=== PATIENT | female | born 1965 | race American Indian/Alaskan Native ===

== ENCOUNTER 2019-03-03 10:47 | Outpatient (CLI) | payer BC ==
--- NOTE | 2019-03-03 13:28 | Mammography Report ---
BILATERAL DIGITAL SCREENING MAMMOGRAM with CAD: 03/03/19 10:47:00 CLINICAL: Routine screening. COMPARISON:None. FINDINGS: The breasts are almost entirely fatty. No mass, architectural distortion or suspicious calcifications. IMPRESSION: No mammographic evidence of malignancy. BI-RADS CATEGORY: 1 - - Negative RECOMMENDATION: Routine mammographic screening in one year. COMMENT: Patient follow-up letters are generated by our [employer] application.
== END 2019-03-03 10:48 | disposition home or self-care (01) ==
LOC: MAMMO 10:47
PROVIDERS: ATTEND Internal Medicine
DX: Z12.31 Encounter for screening mammogram for malignant neoplasm of breast (principal); I10 Essential (primary) hypertension; Z90.710 Acquired absence of both cervix and uterus
CPT/HCPCS: 77067

== ENCOUNTER 2019-05-13 17:54 | Emergency (ER) | payer BC ==
--- NOTE | 2019-05-13 18:09 | Emergency Department Report ---
Blank Doc - Documentation Documentation: This is a 54-year-old female that presents with left sided chest pain with rad iation to left arm. Stated feels like a heaviness in her chest with SOB. This initial assessment/diagnostic orders/clinical plan/treatment(s) is/are subject to change based on patient's health status, clinical progression and re- assessment by fellow clinical providers in the ED. Further treatment and workup at subsequent clinical providers discretion. Patient/guardians urged not to elope from the ED as their condition may be serious if not clinically assessed and managed. Initial orders include: 1- Patient sent to MAIN ED for further evaluation and treatment 2- EKG 3- CXR 4- labs
[2019-05-13 19:04] LABS: Basophils # (Auto) 0.1 K/mm3 (0.0-0.1); Eosinophils # (Auto) 0.2 K/mm3 (0.0-0.4); Eosinophils % (Auto) 1.8 % (0.0-4.3); Hematocrit 40.9 % (30.3-42.9); Hemoglobin 13.4 gm/dl (10.1-14.3); Lymphocytes # (Auto) 2.9 K/mm3 (1.2-5.4); Lymphocytes % (Auto) 30.4 % (13.4-35.0); Mean Corpuscular HGB Conc 33 % (30-34); Mean Corpuscular Volume 82 fl (79-97); Monocytes # (Auto) 0.6 K/mm3 (0.0-0.8); Monocytes % (Auto) 6.7 % (0.0-7.3); Platelet Count 224 K/mm3 (140-440); Red Blood Count 4.97 M/mm3 (3.65-5.03); Red Cell Distribution Width 15.1 % (13.2-15.2)
--- NOTE | 2019-05-13 19:05 | XRay Report ---
CHEST 2 VIEWS INDICATION / CLINICAL INFORMATION: Chest Pain. COMPARISON: 04/04/2018 FINDINGS: SUPPORT DEVICES: None. HEART / MEDIASTINUM: No significant abnormality. LUNGS / PLEURA: No significant pulmonary or pleural abnormality. No pneumothorax. ADDITIONAL FINDINGS: No significant additional findings. IMPRESSION: 1. No acute findings. Signer Name: Jm Urbina MD Signed: 05/13/2019 7:01 PM Workstation Name: [id number]
[2019-05-13 19:13] LABS: INR 0.98 (0.87-1.13)
[2019-05-13 19:14] LABS: Partial Thromboplastin Time 24.2 Sec. (24.2-36.6)
[2019-05-13 19:27] LABS: BUN/Creatinine Ratio 14; Blood Urea Nitrogen 14 mg/dL (7-17); Hemolysis Index 9
--- NOTE | 2019-05-13 20:21 | Emergency Department Report ---
ED General Adult HPI - General Chief complaint: Chest Pain Stated complaint: CHEST PAIN/SOB/HEADACHE Time Seen by Provider: 05/13/19 20:08 Source: patient Mode of arrival: Ambulatory Limitations: No Limitations - History of Present Illness Initial comments: Patient is a 54-year-old female that presents emergency room with complaints of cough, chest congestion, chest pain, shortness of breath and headache. Patient states her symptoms started yesterday. Patient's symptoms worsening. Patient states she has tried multiple [id number] cough agents but nothing is working. Patient has not seen another physician or taking antibiotics for this problem. Patient states her chest pain is a 3 out of 10 and is in her bilateral chest. Patient states her chest pain is worse with palpation and better with rest. Patient states he is no change in her chest pain with exertion. Patient states of shortness of breath is better with rest and worse with exertion. -: Sudden Location: chest Quality: aching Consistency: constant Improves with: rest Worsens with: other Associated Symptoms: chest pain, cough, headaches, malaise, shortness of breath. denies: confusion, diaphoresis, fever/chills, loss of appetite, nausea/vomiting, rash, seizure, syncope, weakness Treatments Prior to Arrival: other - Related Data Home Medications Medication Instructions Recorded Confirmed Last Taken Abacavir/Dolutegravir/Lamivudi 600 mg PO DAILY 04/05/18 04/05/18 1 Day Ago [Triumeq 600-50-300 mg Tablet] ~04/04/18 600 Hydrochlorothiazide 25 mg PO DAILY 04/05/18 04/05/18 3 Days Ago ~04/02/18 25 Previous Rx's Medication Instructions Recorded Last Taken Type Nystatin Cream [Mycostatin Cream] 1 applic TP BID #30 gm 03/15/14 Unknown Rx Sulfamethoxazole/Trimethoprim 1 each PO Q12H #20 tablet 03/15/14 2 Days Ago Rx [Bactrim DS TAB] ~04/03/18 600 Acetaminophen [Acetaminophen TAB] 650 mg PO Q4H PRN #15 tablet 04/07/18 Unknown Rx Aspirin [Aspirin BABY CHEW TAB] 81 mg PO QDAY #30 tab.chew 04/07/18 Unknown Rx HYDROcodone/APAP 10-325 [[place] 1 each PO Q6HR PRN #16 tablet 04/07/18 Unknown Rx 10-325 mg TAB] Insulin NPH, Human [NovoLIN N] 15 unit SUB-Q BIDDIAB #100 units 04/07/18 Unknown Rx Insulin Regular, Human [HumuLIN R] 1 dose SUB-Q ACHS PRN #100 units 04/07/18 Unknown Rx levoFLOXacin [Levaquin TAB] 750 mg PO DAILY #7 tablet 04/07/18 Unknown Rx Doxycycline Hyclate [Doxycycline 100 mg PO Q12HR 10 Days #20 tab 05/13/19 Unknown Rx Hyclate TAB] methylPREDNISolone [Medrol 4MG 4 mg PO DAILY 6 Days #1 tab.ds.pk 05/13/19 Unknown Rx DOSEPAK (21 tabs)] Allergies Allergy/AdvReac Type Severity Reaction Status Date / Time shellfish derived Allergy Vomiting Verified 03/14/14 23:10 ED Review of Systems ROS: Stated complaint: CHEST PAIN/SOB/HEADACHE Other details as noted in HPI Constitutional: denies: chills, fever Eyes: denies: eye pain, eye discharge, vision change ENT: denies: ear pain, throat pain Respiratory: cough, shortness of breath. denies: wheezing Cardiovascular: chest pain. denies: palpitations Endocrine: no symptoms reported Gastrointestinal: denies: abdominal pain, nausea, diarrhea Genitourinary: denies: urgency, dysuria, discharge Musculoskeletal: denies: back pain, joint swelling, arthralgia Skin: denies: rash, lesions Neurological: headache. denies: weakness, paresthesias Psychiatric: denies: anxiety, depression Hematological/Lymphatic: denies: easy bleeding, easy bruising ED Past Medical Hx - Past Medical History Previous Medical History?: Yes Hx Hypertension: Yes (not on meds since lost weight) Hx Diabetes: Yes Hx HIV: Yes - Surgical History Past Surgical History?: Yes Hx Appendectomy: Yes Additional Surgical History: hysterectomy, 1 , bilateral sweat gland removal (under arms) - Family History Family history: no significant - Social History Smoking Status: Never Smoker Substance Use Type: None - Medications Home Medications: Home Medications Medication Instructions Recorded Confirmed Last Taken Type Nystatin Cream [Mycostatin Cream] 1 applic TP BID #30 gm 03/15/14 04/05/18 Unknown Rx Sulfamethoxazole/Trimethoprim 1 each PO Q12H #20 tablet 03/15/14 04/05/18 2 Days Ago Rx [Bactrim DS TAB] ~04/03/18 600 Abacavir/Dolutegravir/Lamivudi 600 mg PO DAILY 04/05/18 04/05/18 1 Day Ago History [Triumeq 600-50-300 mg Tablet] ~04/04/18 600 Hydrochlorothiazide 25 mg PO DAILY 04/05/18 04/05/18 3 Days Ago History ~04/02/18 25 Acetaminophen [Acetaminophen TAB] 650 mg PO Q4H PRN #15 tablet 04/07/18 Unknown Rx Aspirin [Aspirin BABY CHEW TAB] 81 mg PO QDAY #30 tab.chew 04/07/18 Unknown Rx HYDROcodone/APAP 10-325 [[place] 1 each PO Q6HR PRN #16 tablet 04/07/18 Unknown Rx 10-325 mg TAB] Insulin NPH, Human [NovoLIN N] 15 unit SUB-Q BIDDIAB #100 units 04/07/18 Unknown Rx Insulin Regular, Human [HumuLIN R] 1 dose SUB-Q ACHS PRN #100 units 04/07/18 Unknown Rx levoFLOXacin [Levaquin TAB] 750 mg PO DAILY #7 tablet 04/07/18 Unknown Rx Doxycycline Hyclate [Doxycycline 100 mg PO Q12HR 10 Days #20 tab 05/13/19 Unknown Rx Hyclate TAB] methylPREDNISolone [Medrol 4MG 4 mg PO DAILY 6 Days #1 tab.ds.pk 05/13/19 Unknown Rx DOSEPAK (21 tabs)] ED Physical Exam - General Limitations: No Limitations General appearance: alert, in no apparent distress - Head Head exam: Present: atraumatic, normocephalic - Eye Eye exam: Present: normal appearance, PERRL Pupils: Present: normal accommodation - ENT ENT exam: Present: mucous membranes dry, other (enlarged nasal turbinates and tenderness of the maxillary sinus) - Neck Neck exam: Present: normal inspection - Respiratory Respiratory exam: Present: normal lung sounds bilaterally, chest wall tenderness. Absent: respiratory distress, wheezes, rales, accessory muscle use, decreased breath sounds - Cardiovascular Cardiovascular Exam: Present: regular rate, normal rhythm. Absent: systolic murmur, diastolic murmur, rubs, gallop - GI/Abdominal GI/Abdominal exam: Present: soft, normal bowel sounds. Absent: distended, tenderness, guarding - Rectal Rectal exam: Present: deferred - Extremities Exam Extremities exam: Present: normal inspection - Back Exam Back exam: Present: normal inspection - Neurological Exam Neurological exam: Present: alert, oriented X3 - Psychiatric Psychiatric exam: Present: normal affect, normal mood - Skin Skin exam: Present: warm, dry, intact, normal color. Absent: rash ED Course Vital Signs 05/13/19 05/13/19 05/13/19 18:08 20:50 20:54 Temperature 98.6 F Pulse Rate 125 H Respiratory 18 18 Rate Blood Pressure Blood Pressure 153/93 [Left] O2 Sat by Pulse 99 98 97 Oximetry 05/13/19 05/13/19 05/13/19 21:00 21:16 21:30 Temperature Pulse Rate Respiratory Rate Blood Pressure 136/87 129/79 139/87 Blood Pressure [Left] O2 Sat by Pulse 96 97 95 Oximetry 05/13/19 05/13/19 05/13/19 21:46 22:00 22:15 Temperature Pulse Rate Respiratory Rate Blood Pressure 160/80 137/83 135/83 Blood Pressure [Left] O2 Sat by Pulse 96 95 96 Oximetry 05/13/19 05/13/19 05/13/19 22:30 22:34 23:24 Temperature Pulse Rate 102 H 103 H Respiratory 18 Rate Blood Pressure 127/79 Blood Pressure 131/80 [Left] O2 Sat by Pulse 95 100 Oximetry - Reevaluation(s) Reevaluation #1: She received fluids and antibiotics and steroids. Patient states her pain is better. Patient states her headache and chest pain improved. Patient's heart rate improved. Patient's initial heart rate 125 and is now 100. I discussed all results with patient. Patient is stable for discharge. Patient will be discharged home. Patient agrees with plan of care. Patient given discharge instructions. Patient voiced understanding discharge instructions 05/13/19 22:35 ED Medical Decision Making - Lab Data Result diagrams: 05/13/19 18:54 05/13/19 18:54 - EKG Data -: EKG Interpreted by Me EKG shows normal: sinus rhythm, axis, intervals, QRS complexes, ST-T waves Rate: tachycardia - Radiology Data Radiology results: report reviewed, image reviewed interpreted by me: Acute findings on chest x-ray. - Medical Decision Making pt is a 54-year-old female that presents emergency room for cough, chest pain, shortness of breath, headache. Patient's chest pain is reproducible on palpation. Patient's chest pain appears to be musculoskeletal and secondary to cough. Shortness of breath is secondary to bronchitis. Patient's headache appears to be secondary to sinusitis. Chest x-ray negative. Patient's labs unremarkable x hypokalemia.. Patient initially tachycardic and improved with fluids and treatment. patient responded well to treatment in the ER. Patient was given fluids, antibiotics and Medrol in the ER and improved. Patient stable for discharge. Patient discharged home. - Differential Diagnosis sinusitis. URI. Cough. Chest pain. Shortness of breath. Bronchitis Critical care attestation.: If time is entered above; I have spent that time in minutes in the direct care of this critically ill patient, excluding procedure time. ED Disposition Clinical Impression: Bronchitis, SOB (shortness of breath), Cough, Chest wall pain, Dehydration, Hypokalemia Sinusitis Qualifiers: Sinusitis location: maxillary Chronicity: acute Recurrence: recurrent Qualified Code(s): J01.01 - Acute recurrent maxillary sinusitis Chest pain Qualifiers: Chest pain type: unspecified Qualified Code(s): R07.9 - Chest pain, unspecified Disposition: - TO HOME OR SELFCARE Is pt being admited?: No Does the pt Need Aspirin: No Condition: Stable Instructions: Sinusitis (ED), Costochondritis (ED), Acute Bronchitis (ED) Additional Instructions: Patient to follow up with primary care in 2-3 days. Patient to return to ER if condition worsens. Patient to take meds as directed. Patient increase water. Patient's take Tylenol or ibuprofen when necessary for pain. Patient to increase water. Patient to rest. Patient to avoid work tomorrow. Patient's take meds as directed. Patient to eat a banana daily Prescriptions: Doxycycline Hyclate [Doxycycline Hyclate TAB] 100 mg PO Q12HR 10 Days #20 tab methylPREDNISolone [Medrol 4MG DOSEPAK (21 tabs)] 4 mg PO DAILY 6 Days #1 t .pk Referrals: PRIMARY CARE, [Primary Care Provider] - 2-3 Days Forms: Work/School Release Form(ED) Time of Disposition: 22:39
[2019-05-13] MEDS ORDERED: ROCEPHIN/NS 1 GM/50 ML 1 GM/50 ML BAG IV ONE (20:51)
[2019-05-13] MEDS ORDERED: SOLU-Medrol IV ONE (20:51)
[2019-05-13] MEDS ORDERED: NACL 0.9% 500 ML 500 ML IV ONE (20:51)
[2019-05-13 23:24] VITALS: BP 131/80
== END 2019-05-13 23:27 | disposition home or self-care (01) ==
LOC: ED 17:54
DX: J40 Bronchitis, not specified as acute or chronic (principal); E86.0 Dehydration; E87.6 Hypokalemia; J32.9 Chronic sinusitis, unspecified; I10 Essential (primary) hypertension; E11.9 Type 2 diabetes mellitus without complications; Z90.49 Acquired absence of other specified parts of digestive tract; Z90.710 Acquired absence of both cervix and uterus; Z91.013 Allergy to seafood; Z79.899 Other long term (current) drug therapy
CPT/HCPCS: 36415; 71046; 80048; 84484; 85025; 85610; 85730; 93005; 93010; 96365; 96375; 99284; J0696; J2930; J7040